=== PATIENT | male | born 1985 | race Caucasian/White ===

== ENCOUNTER 2017-01-25 21:06 | Emergency (ER) | payer OTHER ==
[~2017-01-25] VITALS: Ht 180.3 cm; Wt 90.7 kg
[2017-01-25 21:15] VITALS: BP 144/91
--- NOTE | 2017-01-25 21:45 | ED GI/GU/ABDOMINAL COMPLAINT ---
History of Present Illness General Chief Complaint: Male Genitourinary Problems Stated Complaint: WANTS TO BE CHECKED FOR STD Source: patient Exam Limitations: no limitations Vital Signs & Intake/Output Vital Signs & Intake/Output Vital Signs Date Time Temp Pulse Resp B/P B/P Pulse O2 O2 Flow FiO2 Mean Ox Delivery Rate 01/25 2115 97.9 95 15 144/91 100 Room Air ED Intake and Output 01/26 0000 01/25 1200 Intake Total Output Total 30 Balance -30 Output, Urine 30 Patient 200 lb Weight Weight Reported by Patient Measurement Method Allergies Coded Allergies: aspirin (Severe, CHOKING 01/25/17) Triage Note: PT REQUESTING TO BE CHECKED FOR STD, STATING HE IS CURRENTLY ASYMPTOMATIC "BUT MY GIRLFRIEND HAS BEEN ITCHING" DENIES ANY NEW SEXUAL CONTACTS Triage Nurses Notes Reviewed? yes HPI: Patient is a 31-year-old male presents requesting STD testing. Patient reports that his girlfriend has been having vaginal itching and had a small amount of bloody discharge this weekend. Patient concerned that she may have sexually- transmitted disease. Patient reports his pain is 0 out of 10. No penile discharge, dysuria, testicular pain, abdominal pain, fevers, chills, nausea, vomiting. 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 none Neurological: NONE EENT: NONE Cardiovascular: NONE Respiratory: NONE Gastrointestinal: NONE Hepatic: NONE Renal: NONE Musculoskeletal: NONE Psychiatric: NONE Endocrine: NONE Blood Disorders: NONE Cancer(s): NONE Surgical History Surgical History: non-contributory Psychosocial History What is your primary language Upper Sorbian Tobacco Use: Current Daily Use Daily Tobacco Use Amount/Type: => 5 Cigarettes daily ETOH Use: denies use Illicit Drug Use: denies illicit drug use Family History Hx Contributory? No (BRIGITTE DRAPER) Review of Systems Review of Systems Constitutional: Denies: chills, fever. GI: Denies: abdominal pain, nausea, vomiting. Genitourinary: Reports: see HPI. Denies: discharge, dysuria, frequency, pain. Musculoskeletal: Denies: back pain. Skin: Reports: no symptoms. Neurological/Psychological: Reports: no symptoms. Hematologic/Endocrine: Reports: no symptoms. Immunologic/Allergic: Reports: no symptoms. (BRIGITTE DRAPER) Physical Exam Physical Exam General Appearance: well developed/nourished, alert, awake Head: atraumatic, normal appearance Eyes: Bilateral: normal appearance. Ears, Nose, Throat, Mouth: hearing grossly normal, moist mucous membrane Neck: normal inspection, full range of motion Respiratory: no respiratory distress Gastrointestinal: nondistended Back: normal range of motion Extremities: normal range of motion Neurologic/Psych: no motor/sensory deficits, awake, alert, oriented x 3, normal gait, normal mood/affect Skin: intact, normal color, warm/dry Core Measures ACS in differential dx? No Severe Sepsis Present: No Septic Shock Present: No (BRIGITTE DRAPER) Progress Differential Diagnosis: urethritis, UTI/pyelo, exposure to STD, well check Plan of Care: Orders Procedure Date/time Status CHLAMYDIA-GC DNA PROBE 01/25 2149 Active Microbiology 01/25 2200 URINE ROUT: GC DNA Probe - RECD 01/25 2200 URINE ROUT: Chlamydia DNA Probe (DESHAUN) - RECD Patient asymptomatic. Discussed that I would obtain gonorrhea and chlamydia testing, and that further testing should be obtained through his primary doctor. Empiric therapy deferred. (BRIGITTE DRAPER) Initial ED EKG: none (BRIGITTE DRAPER) Departure Departure Time of Disposition: 2149 Disposition: HOME OR SELF CARE Condition: Stable Clinical Impression Primary Impression: Screen for sexually transmitted diseases Referrals: NILE BENJAMIN,LIDYA Velez (PCP/Family) Additional Instructions: You will be called if your testing comes back positive for gonorrhea or chlamydia. It usually takes 2-3 days to receive the results. Follow up with your primary doctor for further evaluation. Return to the ER if penile pain, testicular pain, abdominal pain, fevers, or any worsening of symptoms. Departure Forms: Customer Survey General Discharge Information (BRIGITTE DRAPER) Departure Prescriptions: Current Visit Scripts No Known Home Medications PA/HEADLIGHT ADJUSTER Co-Sign Statement Statement: ED Attending supervision documentation- [] I saw and evaluated the patient. I have also reviewed all the pertinent lab results and diagnostic results. I agree with the findings and the plan of care as documented in the PA's/HEADLIGHT ADJUSTER's documentation. [x] I have reviewed the ED Record and agree with the PA's/HEADLIGHT ADJUSTER's documentation. [] Additions or exceptions (if any) to the PAs/HEADLIGHT ADJUSTER's note and plan are summarized below: [] (KHLOE BENJAMIN,LOWELL Rolon)
== END 2017-01-25 22:03 ==
LOC: ERH 21:06
DX: Z20.2 Contact with and (suspected) exposure to infections with a predominantly sexual mode of transmission (principal)
CPT/HCPCS: 87491; 87591

== ENCOUNTER 2017-12-17 15:43 | Observation (INO) | payer OTHER ==
[~2017-12-17] VITALS: Ht 180.3 cm; Wt 90.7 kg
[2017-12-17 17:55] LABS: ABSOLUTE BASOPHIL COUNT 0.1 /CUMM (0.0-0.2); ABSOLUTE EOSINOPHIL COUNT 0.1 /CUMM (0.0-0.7); ABSOLUTE GRANULOCYTE CT 7.4 /CUMM (1.4-6.5); ABSOLUTE LYMPH COUNT 3.2 /CUMM (1.2-3.4); ABSOLUTE MONOCYTE COUNT 0.7 /CUMM (0.10-0.60); BASOPHIL % 1.3 % (0.0-2.0); EOSINOPHIL % 0.8 % (0-5); GRANULOCYTE % 64.4 % (42.2-75.2); HEMATOCRIT 47.2 % (42-52); MEAN CORPUSCULAR HGB 27.9 PG (27.0-31.0); MEAN CORPUSCULAR HGB CONC 32.6 G/DL (33.0-37.0); MEAN CORPUSCULAR VOLUME 85.6 FL (80.0-94.0); MEAN PLATELET VOLUME 9.8 FL (7.4-10.4); PLATELET COUNT 174 /CUMM (130-400); RBC DISTRIBUTION WIDTH 12.8 % (11.5-14.5); RED BLOOD CELL CT 5.51 /CUMM (4.70-6.10); WHITE BLOOD CELL COUNT 11.5 /CUMM (4.8-10.8)
--- NOTE | 2017-12-17 18:04 | ED GI/GU/ABDOMINAL COMPLAINT ---
See Addendum History of Present Illness General Chief Complaint: Abdominal Pain/Flank Pain Stated Complaint: ABD PAIN SINCE THIS MORNING PER PT Source: patient Exam Limitations: no limitations Vital Signs & Intake/Output Vital Signs & Intake/Output Vital Signs Date Time Temp Pulse Resp B/P B/P Pulse O2 O2 Flow FiO2 Mean Ox Delivery Rate 12/17 1621 97.7 98 18 121/83 97 Room Air Allergies Coded Allergies: aspirin (Severe, CHOKING 01/25/17) Reconcile Medications No Known Home Medications Triage Note: PT PRESENTS TO THE ER C/O ABD PAIN 03/30. PT STATES THAT HE HAD AN INTACONCEPTION (PER PT WHEN HIS SMALL INTESTINES BINDS WITH THE LARGE). PT STATES THAT THE PAIN FEELS THE SAME. PER PT PAIN STARTED 10AM THIS AM AND PROGRESSIVELY WORSE. PT LAST BM YESTERDAY. Triage Nurses Notes Reviewed? yes Onset: Abrupt Duration: day(s): Timing: recent history Quality/Severity: moderate, sharpness, severe Location: periumbilical Radiation: no radiation Activities at Onset: none No Modifying Factors: none HPI: 32-year-old male comes into the emergency room for further evaluation of abdominal pain. Patient reports that 2 years ago he had intussusception and had surgery. Denies any other prior abdominal surgeries. Reports pain is located across his mid abdomen and shoots down his right side. There is any fever chills vomiting. Some associated nausea earlier. He had a bowel movement this morning but has not been passing any gas since then. Sudden onset pain. (Herrera Warren) Past History Travel History Traveled to [place] past 21 day No Medical History Any Pertinent Medical History? see below for history Neurological: NONE EENT: NONE Cardiovascular: NONE Respiratory: NONE Gastrointestinal: INTRACEPTION Hepatic: NONE Renal: NONE Musculoskeletal: NONE Psychiatric: NONE Endocrine: NONE Blood Disorders: NONE Cancer(s): NONE Surgical History Surgical History: non-contributory Psychosocial History What is your primary language Wolof Tobacco Use: Current Not Daily Daily Tobacco Use Amount/Type: =< 4 Cigarettes daily Family History Hx Contributory? No (Herrera Warren) Review of Systems Review of Systems Constitutional: Reports: no symptoms. EENTM: Reports: no symptoms. Respiratory: Reports: no symptoms. Cardiovascular: Reports: no symptoms. GI: Reports: see HPI. Genitourinary: Reports: no symptoms. Musculoskeletal: Reports: no symptoms. Skin: Reports: no symptoms. Neurological/Psychological: Reports: no symptoms. Hematologic/Endocrine: Reports: no symptoms. Immunologic/Allergic: Reports: no symptoms. All Other Systems: Reviewed and Negative (Herrera Warren) Physical Exam Physical Exam General Appearance: well developed/nourished, alert, awake Head: atraumatic, normal appearance Eyes: Bilateral: normal appearance, EOMI. Ears, Nose, Throat, Mouth: hearing grossly normal, moist mucous membrane Neck: normal inspection, full range of motion Respiratory: normal breath sounds, no respiratory distress Cardiovascular: regular rate/rhythm Gastrointestinal: soft, tenderness Back: normal inspection Extremities: normal range of motion Neurologic/Psych: awake, alert, oriented x 3, normal gait Skin: intact, normal color Core Measures ACS in differential dx? No Sepsis Present: No Sepsis Focused Exam Completed? No (Herrera Warren) Progress Differential Diagnosis: AMI, appendicitis, biliary colic, cholecystitis, diverticulitis, gastritis, ischemic bowel, PUD/GERD, perforated viscous, SBO, ureterolithiasis, intussusception Plan of Care: Orders Procedure Date/time Status Nothing by Mouth 12/[address] in observation 12/18 2007 Active ED Holding Orders 12/18 2007 Active Vital Signs 12/18 2007 Active Code Status 12/18 2007 Active Add-on Test (ER Only) 12/17 1803 Active LACTIC ACID 12/17 1740 Complete LIPASE 12/17 1727 Complete HIGH SENSITIVITY CRP 12/17 1727 Complete COMPREHENSIVE METABOLIC PANEL 12/17 1727 Complete CBC WITHOUT DIFFERENTIAL 12/17 1727 Complete Current Medications Sig/Kathy Start time Last Medication Dose Stop Time Status Admin Morphine Sulfate 4 MG ONCE ONE 12/17 2014 UNVr (Morphine) 12/18 2015 Laboratory Tests 12/17/17 1740: Anion Gap 13, Estimated GFR > 60, BUN/Creatinine Ratio 20.0, Glucose 77, Lactic Acid 1.0, Calcium 9.7, Total Bilirubin 1.2, AST 42, ALT 71, Alkaline Phosphatase 75, C-React Prot High Sens 0.6 L, Total Protein 8.3 H, Albumin 4.9, Globulin 3.4, Albumin/Globulin Ratio 1.4, Lipase 89, CBC w Diff NO MAN DIFF REQ, RBC 5.51 , MCV 85.6, MCH 27.9, MCHC 32.6 L, RDW 12.8, MPV 9.8, Gran % 64.4, Lymphocytes % 27.8, Monocytes % 5.7, Eosinophils % 0.8, Basophils % 1.3, Absolute Granulocytes 7.4 H, Absolute Lymphocytes 3.2, Absolute Monocytes 0.7 H, Absolute Eosinophils 0.1, Absolute Basophils 0.1 Diagnostic Imaging: Viewed by Me: CT Scan. Discussed w/RAD: CT Scan. Initial ED EKG: none (Cong GLEASON,Herrera) Departure Departure Disposition: HOME OR SELF CARE Condition: Stable Clinical Impression Primary Impression: Abdominal pain Referrals: Alejandro Adler DO, MD,Fredrick Velez (PCP/Family) Additional Instructions: Follow-up with general surgeon provided. Return if any concerns worsening symptoms. Please go over all results of today's visit with your primary care doctor. Contact your primary care doctor to let them know you were here in the emergency room. There may be nonspecific findings which may not be related to your visit today here in the emergency room but may require further evaluation and chronic monitoring by your primary care doctor. If you had a laceration today the chance of foreign body always remains. You should follow-up with your primary care doctor for recheck in 3-5 days for a wound check. If you had an x-ray done there is a chance that a fracture could have been missed on initial read and you should follow-up with your primary care doctor for repeat x-rays if symptoms persist. If your blood pressure was elevated here in the emergency room please have rechecked by [facility] primary care doctor within the next 48. If you were prescribed a narcotic here in the emergency room or any type of controlled substances you're not allowed to drive while taking this medication or operate any type of heavy machinery. Narcotics can make you feel lightheaded dizziness nausea and can cause constipation. You may need to picker and packer a stool softener. Thank you for choosing [facility] emergency room. Please return to the emergency room immediately if you have any other concerns worsening of symptoms. Departure Forms: Customer Survey General Discharge Information Prescriptions: Current Visit Scripts No Known Home Medications Observation Note Spoke With: Alejandro Adler DO Physician Advisor Notified: CORRY BENJAMIN,EVA Montoya Place Patient In: Non-ED OBS Care Area Rationale for Observation: My rational for observation is as follows .NPO. Possibly repeat imaging in the morning. Surgical consultation. Repeat labs. IV pain control. (Herrera Warren) PA/SUPERVISOR BLOOD Co-Sign Statement Statement: ED Attending supervision documentation- [X] I saw and evaluated the patient. I have also reviewed all the pertinent lab results and diagnostic results. I agree with the findings and the plan of care as documented in the PA's/SUPERVISOR BLOOD's documentation. [X] I have reviewed the ED Record and agree with the PA's/SUPERVISOR BLOOD's documentation. [] Additions or exceptions (if any) to the PAs/SUPERVISOR BLOOD's note and plan are summarized below: [Patient to be placed in a surgical observation for abdominal pain. Patient will require serial abdominal exams. Unknown yet at this time the patient will require surgical intervention or not.] (Corry BENJAMIN,Eva Montoya)
--- NOTE | 2017-12-17 19:31 | CT SCAN REPORT ---
EXAMINATION: CT ABDOMEN AND PELVIS WITH CONTRAST CLINICAL INFORMATION: 32-year-old male patient with periumbilical pain. History of intussusception. Presumptive diagnoses: Small bowel obstruction, intussusception, hernia. COMPARISON: None TECHNIQUE: Multidetector volumetric imaging was performed of the abdomen and pelvis following IV administration of 95 mL of Optiray 320 intravenous contrast. Sagittal and coronal reformatted images were obtained on the technologist's workstation. DLP: 351 mGy-cm FINDINGS: CHIEF SCIENCE OFFICER: Normal. No evidence of small bowel obstruction. LUNG BASES: The visualized lung bases are unremarkable. LIVER, GALLBLADDER, AND BILIARY TREE: Normal. PANCREAS: Unremarkable. SPLEEN: Unremarkable. ADRENAL GLANDS: Unremarkable. KIDNEYS AND URETERS: The kidneys are normal in size, shape, and attenuation. No hydronephrosis, hydroureter, or calculi seen. No perinephric stranding. BLADDER: Unremarkable. GASTROINTESTINAL TRACT: The colon and appendix are normal. Of interest is the observation of a cluster of proximal jejunum with thickened murrieta. The orientation of these loops is unusual and therefore the likelihood of a small bowel to small bowel intussusception is very high. The rest of the small intestine is normal. ABDOMINAL WALL: No significant hernia is appreciated. LYMPH NODES: Normal. VASCULAR: Unremarkable. PELVIC VISCERA: Unremarkable. OSSEOUS STRUCTURES: Unremarkable. IMPRESSION: The edematous cluster of proximal jejunal loops is a likely location for producing a small bowel to small bowel intussusception. Currently, no intussusception is documented. However these types of intussusceptions are most often evanescent.
--- NOTE | 2017-12-17 20:25 | History & Physical Pre-Op ---
General Information and HPI MD Statement: I have seen and personally examined BRIGITTE DA SILVA and documented this H&P. The patient is a 32 year old M who presented with a patient stated chief complaint of [ABDOMINAL PAIN]. Source of Information: patient History of Present Illness: 32-year-old male that presented to the emergency room with abdominal pain started today. Patient with a history of intussusception approximately year and a half ago for which required a laparotomy and as per patient a small bowel resection. Patient states that this pain was similar to the one he had in the past. Currently patient states he feels better however still has some vague abdominal pain. Currently denies nausea or vomiting. Allergies/Medications Allergies: Coded Allergies: aspirin (Severe, CHOKING 01/25/17) Home Med list No Known Home Medications Past History Medical History Neurological: NONE EENT: NONE Cardiovascular: NONE Respiratory: NONE Gastrointestinal: INTRACEPTION Hepatic: NONE Renal: NONE Musculoskeletal: NONE Psychiatric: NONE Endocrine: NONE Blood Disorders: NONE Cancer(s): NONE Surgical History Pertinent Surgical History: non-contributory (laparotomy/small bowel resecti) Past Family/Social History Psychosocial History ETOH Use: occasional use Illicit Drug Use: denies illicit drug use Review of Systems Review of Systems: All negative except for the above-mentioned pertinent positives. Exam & Diagnostic Data Last 24 Hrs of Vital Signs/I&O Vital Signs Date Time Temp Pulse Resp B/P B/P Pulse O2 O2 Flow FiO2 Mean Ox Delivery Rate 12/17 1621 97.7 98 18 121/83 97 Room Air Physical Exam General Appearance Alert, Oriented X3, No Acute Distress Neck Supple Cardiovascular Normal S1, Normal S2 Lungs Clear to Auscultation Abdomen Soft (mild epigastric discomfort), no rebound or guarding, mild epigastric pain Neurological Normal Speech, Cranial Nerves 3-12 NL Extremities No Edema, No Tenderness/Swelling Last 24 Hrs of Labs/Robi: Laboratory Tests 12/17/17 1740: Anion Gap 13, Estimated GFR > 60, BUN/Creatinine Ratio 20.0, Glucose 77, Lactic Acid 1.0, Calcium 9.7, Total Bilirubin 1.2, AST 42, ALT 71, Alkaline Phosphatase 75, C-React Prot High Sens 0.6 L, Total Protein 8.3 H, Albumin 4.9, Globulin 3.4, Albumin/Globulin Ratio 1.4, Lipase 89, CBC w Diff NO MAN DIFF REQ, RBC 5.51 , MCV 85.6, MCH 27.9, MCHC 32.6 L, RDW 12.8, MPV 9.8, Gran % 64.4, Lymphocytes % 27.8, Monocytes % 5.7, Eosinophils % 0.8, Basophils % 1.3, Absolute Granulocytes 7.4 H, Absolute Lymphocytes 3.2, Absolute Monocytes 0.7 H, Absolute Eosinophils 0.1, Absolute Basophils 0.1 Diagnostic Data Other Results CT scan of the abdomen and pelvis - thickened jejunal loops, no current intussusception. Assessment/Plan Assessment/Plan: 32-year-old male with abdominal pain and history of intussusception. Now with thickened loops of jejunum without an obvious intussusception at this time. We'll admit for observation overnight due to persistent discomfort Nothing by mouth IV fluids for now Multiview in the morning Serial abdominal exams May require a GI evaluation in the morning As Ranked By This Provider Problem List: 1. Abdominal pain
--- NOTE | 2017-12-17 21:06 | Admission Core Measures ---
Acute Coronary Syndrome (CM) ACS Core Measures Acute Coronary Syndrome Diagnosis No Congestive Heart Failure (NEW) CHF Core Measures Congestive Heart Failure Diagnosis No Cerebrovascular Accident (NEW) CVA Core Measures CVA/TIA Diagnosis No Venous Thromboembolism VTE Core Bala (View Protocol) VTE Risk Factors Acute Medical Illness No Mechanical VTE Prophylaxis d/t N/A MechProphylax Ordered No VTE Pharm Prophylaxis d/t NA PharmProphylax ordered Problem List As ranked by this Provider includes Assessment & Plan 1. Abdominal pain HOME MEDS Home Med List No Known Home Medications
[2017-12-17 22:13] VITALS: BP 112/76
[2017-12-18 06:00] VITALS: BP 100/74
[2017-12-18 08:09] LABS: ABSOLUTE BASOPHIL COUNT 0 /CUMM (0.0-0.2); ABSOLUTE EOSINOPHIL COUNT 0.3 /CUMM (0.0-0.7); ABSOLUTE GRANULOCYTE CT 3.7 /CUMM (1.4-6.5); ABSOLUTE LYMPH COUNT 3.2 /CUMM (1.2-3.4); ABSOLUTE MONOCYTE COUNT 0.6 /CUMM (0.10-0.60); BASOPHIL % 0.1 % (0.0-2.0); EOSINOPHIL % 3.8 % (0-5); HEMATOCRIT 42.4 % (42-52); MEAN CORPUSCULAR HGB 28.7 PG (27.0-31.0); MEAN CORPUSCULAR HGB CONC 33.8 G/DL (33.0-37.0); MEAN PLATELET VOLUME 10.1 FL (7.4-10.4); PLATELET COUNT 149 /CUMM (130-400); RBC DISTRIBUTION WIDTH 13.2 % (11.5-14.5); RED BLOOD CELL CT 4.99 /CUMM (4.70-6.10); WHITE BLOOD CELL COUNT 7.9 /CUMM (4.8-10.8)
--- NOTE | 2017-12-18 08:56 | PN- General Surgery ---
Subjective Subjective: Reports pain significantly improved since he presented to the ED. His pain has migrated somewhat to the right lower quadrant. Denies nausea. Eager to eat. Passing some flatus yesterday and last bm yesterday morning. He states he wants to go home today. Objective Vital Signs and I&Os Vital Signs Date Time Temp Pulse Resp B/P B/P Pulse O2 O2 Flow FiO2 Mean Ox Delivery Rate 12/18 599 98.0 58 16 100/74 94 Room Air 12/17 2213 97.9 60 18 112/76 97 Room Air 12/17 2028 97.4 72 18 133/84 97 12/17 1621 97.7 98 18 121/83 97 Room Air Intake & Output 12/18 1600 12/18 0800 12/18 0000 12/17 1600 12/17 0812/17 0000 Intake Total 1000 0 Output Total Balance 1000 0 Intake, IV 1000 Intake, Oral 0 0 Patient 200 lb Weight Weight Reported by Patient Measurement Method Physical Exam: General - alert & oriented x 3. comfortable. no acute distress. Lungs - clear bilaterally. no w/r/r. Cardiac - s1s2. reg. Abdomen - soft. bowel sounds appreciated. mild right lower quadrant tenderness. no peritoneal signs. Extremities - warm bilaterally. no c/c/e. calves soft and nontender b/l. Current Medications: Current Medications Sig/Kathy Start time Last Medication Dose Route Stop Time Status Admin Acetaminophen 650 MG Q6PRN PRN 12/17 2100 AC PO Dextrose/Sodium 1,000 ML .Q8H 12/17 2100 AC 12/18 Chloride IV 0531 Heparin Sodium 5,000 UNIT Q8 12/18 0600 AC 12/18 (Porcine) SC 0531 Influenza Virus 0.5 ML ONCE ONE 12/18 1000 AC Vaccine IM 12/18 1001 Morphine Sulfate 2 MG Q3P PRN 12/17 2100 AC IV Morphine Sulfate 4 MG Q3P PRN 12/17 2100 AC 12/18 IV 0531 Morphine Sulfate 0 .STK-MED ONE 12/17 2037 DC .ROUTE Morphine Sulfate 4 MG ONCE ONE 12/17 2014 DC 12/17 IV 12/17 Morphine Sulfate 0 .STK-MED ONE 12/17 1904 DC .ROUTE Morphine Sulfate 4 MG ONCE ONE 12/17 183 DC 12/17 IV 12/17 1830 191 Ondansetron HCl 4 MG Q8P PRN 12/17 2100 AC IV Results Last 48 Hours of Labs: Laboratory Tests 12/18 12/17 0723 1740 Chemistry Sodium (137 - 145 mmol/L) 143 142 Potassium (3.5 - 5.1 mmol/L) 4.0 4.1 Chloride (98 - 107 mmol/L) 106 104 Carbon Dioxide (22 - 30 mmol/L) 24 26 Anion Gap (5 - 16) 13 13 BUN (9 - 20 mg/dL) 14 14 Creatinine (0.7 - 1.2 mg/dL) 0.7 0.7 Estimated GFR (>60 ml/min) > 60 > 60 BUN/Creatinine Ratio (7 - 25 %) 20.0 20.0 Glucose (65 - 99 mg/dL) 77 Lactic Acid (0.7 - 2.1 mmol/L) 1.0 Calcium (8.4 - 10.2 mg/dL) 9.7 Total Bilirubin (0.2 - 1.3 mg/dL) 1.2 AST (17 - 59 U/L) 42 ALT (21 - 72 U/L) 71 Alkaline Phosphatase (< 127 U/L) 75 C-React Prot High Sens (1.0 - 3.0 mg/L) 0.6 L Total Protein (6.3 - 8.2 g/dL) 8.3 H Albumin (3.5 - 5.0 g/dL) 4.9 Globulin (1.9 - 4.2 gm/dL) 3.4 Albumin/Globulin Ratio (1.1 - 2.2 %) 1.4 Lipase (23 - 300 U/L) 89 Hematology CBC w Diff NO MAN DIFF REQ NO MAN DIFF REQ WBC (4.8 - 10.8 /CUMM) 7.9 11.5 H RBC (4.70 - 6.10 /CUMM) 4.99 5.51 Hgb (14.0 - 18.0 G/DL) 14.3 15.4 Hct (42 - 52 %) 42.4 47.2 MCV (80.0 - 94.0 FL) 85.0 85.6 MCH (27.0 - 31.0 PG) 28.7 27.9 MCHC (33.0 - 37.0 G/DL) 33.8 32.6 L RDW (11.5 - 14.5 %) 13.2 12.8 Plt Count (130 - 400 /CUMM) 149 174 MPV (7.4 - 10.4 FL) 10.1 9.8 Gran % (42.2 - 75.2 %) 47.0 64.4 Lymphocytes % (20.5 - 51.1 %) 41.1 27.8 Monocytes % (1.7 - 9.3 %) 8.0 5.7 Eosinophils % (0 - 5 %) 3.8 0.8 Basophils % (0.0 - 2.0 %) 0.1 1.3 Absolute Granulocytes (1.4 - 6.5 /CUMM) 3.7 7.4 H Absolute Lymphocytes (1.2 - 3.4 /CUMM) 3.2 3.2 Absolute Monocytes (0.10 - 0.60 /CUMM) 0.6 0.7 H Absolute Eosinophils (0.0 - 0.7 /CUMM) 0.3 0.1 Absolute Basophils (0.0 - 0.2 /CUMM) 0 0.1 Assessment/Plan Assessment/Plan This 32 year old male with hx intussusception requiring surgery several years ago who presented yesterday with abdominal pain with imaging suggesting possible resolved re-intussusception, currently feeling significantly better and eager to eat food currently npo / ivf f/u xray this morning trial food after xray done / read oob/ambulation hep sc - dvt ppx observation status given likelihood of discharge today if xray stable and tolerating food will d/w Core Measures Venous Thromboembolism VTE Risk Factors Acute Medical Illness No Mechanical VTE Prophylaxis d/t N/A MechProphylax Ordered No VTE Pharm Prophylaxis d/t NA PharmProphylax ordered
--- NOTE | 2017-12-18 10:25 | Patient Discharge Instructions ---
Discharge Instructions General Discharge Information You were seen/treated for: abdominal pain, possible resolved intussusception You had these procedures: bowel rest, iv fluids, repeat imaging Watch for these problems: fever>101.3, increased pain, recurrent abdominal pain, nausea/vomiting Diet Continue normal diet: Yes Recommended Diet: Regular Activity Full Activity/No Limits: Yes Activity Self Limited: Yes Acute Coronary Syndrome Inclusion Criteria At DC or during hospital stay patient has or had the following: ACS DIAGNOSIS No Discharge Core Measures Meds if any: Prescribed or Continued at Discharge Meds if any: NOT Prescribed or Continued at Discharge Congestive Heart Failure Inclusion Criteria At DC or during hospital stay patient has or had the following: CHF DIAGNOSIS No Discharge Core Measures Meds if any: Prescribed or Continued at Discharge Meds if any: NOT Prescribed or Continued at Discharge Cerebrovascular accident Inclusion Criteria At DC or during hospital stay patient has or had the following: CVA/TIA Diagnosis No Discharge Core Measures Meds if any: Prescribed or Continued at Discharge Meds if any: NOT Prescribed or Continued at Discharge Venous thromboembolism Inclusion Criteria VTE Diagnosis No VTE Type NONE VTE Confirmed by (Test) NONE Discharge Core Measures - Per Current guidelines, there needs to be overlap - treatment for the first 5 days of Warfarin therapy. - If discharged on Warfarin prior to 5 days of - overlap therapy, the patient will need to be - assessed for post discharge needs including - *Post discharge parental anticoagulation - *Warfarin and/or parental anticoagulation education - *Follow up date to check INR post discharge At least 5 days overlap therapy as Inpatient No Meds if any: Prescribed or Continued at Discharge Note: Overlap Therapy is Warfarin and Anticoagulant Meds if any: NOT Prescribed or Continued at Discharge
--- NOTE | 2017-12-18 10:32 | Surg Short-stay <48hrs Dis Sum ---
Visit Information Visit Dates Admission Date: 12/17/17 Discharge Date: 12/18/17 Surgical Short Stay DC Summary Admission Diagnosis: abdominal pain, suspected resolved intussusception Final Diagnosis: same as above, conservatively treated with bowel rest and observation Procedure(s): none Summary/Significant Findings: Presented to the ED 12/17/17 with acute abdominal pain and CT scan imaging done without oral contrast that showed possible resolved intussusception. He was kept npo with iv fluids, and re-imaged the next morning with repeat labs. Tolerating diet advancement prior to discharge to home. Condition at Discharge: stable Discharge Disposition: home or self care Discharge instructions provided to patient/family: Yes Post discharge follow-up plan: follow up with collector Copies to: Lars BENJAMIN,Fredrick Velez
--- NOTE | 2017-12-18 12:36 | RADIOLOGY REPORT ---
EXAMINATION: XR ABDOMEN MULTIPLE VIEWS CLINICAL INDICATION: Abdominal pain. Presumptive diagnosis of intussusception. COMPARISON: The scan of the abdomen and pelvis dated 12/17/2017. TECHNIQUE: 2 views of the abdomen. FINDINGS: As noted on the CT scan, there is mild gas outlining the ascending, transverse and descending colon with relative paucity of bowel gas in the small bowel loops. No suspicious air-fluid levels are noted on the upright view. No free air is seen. The bladder is well distended and outlined by the contrast from recent CT scan and appears unremarkable. Bony structures are normal. Lung bases are clear. IMPRESSION: Normal bowel gas pattern with no plain film evidence of bowel obstruction or perforation.
[2017-12-18 14:46] VITALS: BP 118/82
== END 2017-12-18 16:10 ==
LOC: ERH 15:43 → ERHI 20:08 → 2NA 20:08 → ENRESERV 21:09 → 2NA 21:54 → ENTRNSPT 12-18 16:11 → EDTRNSPTSTS 12-18 16:18 → EDTRNSPT 12-18 16:18 → CMPTRNSPT 12-18 16:25
PROVIDERS: Physician Assistant; Physician Assistant Surgical
DX: R10.9 Unspecified abdominal pain (principal)
CPT/HCPCS: 6030; 36592; 74021; 74177; 82436; 96372; 96374; G0378; J1644; J7042; Q2036

== ENCOUNTER 2018-05-26 08:13 | Emergency (ER) | payer OTHER ==
[2018-05-26 09:07] LABS: ABSOLUTE BASOPHIL COUNT 0 /CUMM (0.0-0.2); ABSOLUTE EOSINOPHIL COUNT 0.2 /CUMM (0.0-0.7); ABSOLUTE GRANULOCYTE CT 5.5 /CUMM (1.4-6.5); ABSOLUTE LYMPH COUNT 2.8 /CUMM (1.2-3.4); ABSOLUTE MONOCYTE COUNT 0.6 /CUMM (0.10-0.60); BASOPHIL % 0.4 % (0.0-2.0); EOSINOPHIL % 2.1 % (0-5); GRANULOCYTE % 60.3 % (42.2-75.2); HEMATOCRIT 44.7 % (42-52); MEAN CORPUSCULAR HGB 28.7 PG (27.0-31.0); MEAN CORPUSCULAR HGB CONC 34.3 G/DL (33.0-37.0); MEAN CORPUSCULAR VOLUME 83.7 FL (80.0-94.0); MEAN PLATELET VOLUME 10.4 FL (7.4-10.4); PLATELET COUNT 167 /CUMM (130-400); RBC DISTRIBUTION WIDTH 13.2 % (11.5-14.5); RED BLOOD CELL CT 5.35 /CUMM (4.70-6.10); WHITE BLOOD CELL COUNT 9.2 /CUMM (4.8-10.8)
--- NOTE | 2018-05-26 09:20 | ED GI/GU/ABDOMINAL COMPLAINT ---
History of Present Illness General Chief Complaint: Abdominal Pain/Flank Pain Stated Complaint: ABD PAIN Source: patient Exam Limitations: no limitations Vital Signs & Intake/Output Vital Signs & Intake/Output Vital Signs Date Time Temp Pulse Resp B/P B/P Pulse O2 O2 Flow FiO2 Mean Ox Delivery Rate 05/26 1133 98.0 89 18 113/73 97 Room Air 05/26 0919 98 Room Air Allergies Coded Allergies: aspirin (Severe, CHOKING 01/25/17) Reconcile Medications Dicyclomine HCl 10 MG CAPSULE 1-2 CAP PO TID abd pain Tramadol HCl 50 MG TABLET 1-2 TAB PO Q6P PRN pain Triage Note: PT TO ED C/O MIDDLE ABD PAIN. STATES THAT HE HAS A HX OF INTUSSUSCPETION, AND FEELS SIMILAR. +NAUSEA. HAVING NORMAL BM. PAIN 8/10 CURRENTLY, PAIN STARTED X2 DAYS AGO. Triage Nurses Notes Reviewed? yes Duration: day(s): Timing: recent history Radiation: no radiation Activities at Onset: none HPI: Pt is a 32 y/o M PMHx intussesception presenting with abdominal pain x 2 days. Pt states pain is located a the mid-abdomen and radiating to his back. Pt does not recall what he was doing at onset of pain. Pt denies exerting himself in the past several days. Pt states he had surgery to correct intussusception 3 years ago. Pt denies any complications from the surgery. Pt admits to occasional ETOH and smoking. Pt denies any change in diet, N/V/D/C, dysuria, polyuria, hematuria , cp, cough, SOB. (Herrera Warren) Past History Travel History Traveled to [place] past 21 day No Medical History Any Pertinent Medical History? see below for history Neurological: NONE EENT: NONE Cardiovascular: NONE Respiratory: NONE Gastrointestinal: INTUSSICEPTION Hepatic: NONE Renal: NONE Musculoskeletal: NONE Psychiatric: NONE Endocrine: NONE Blood Disorders: NONE Cancer(s): NONE History of MRSA: No History of VRE: No History of CDIFF: No Influenza Vaccine: 12/18/17 Surgical History Surgical History: non-contributory (laparotomy/small bowel resecti) Psychosocial History What is your primary language Gabonese Tobacco Use: Never used Family History Hx Contributory? No (Herrera Warren) Review of Systems Review of Systems Constitutional: Denies: see HPI. EENTM: Reports: no symptoms. Respiratory: Denies: see HPI. Cardiovascular: Denies: see HPI. GI: Reports: see HPI. Genitourinary: Denies: see HPI. Musculoskeletal: Reports: no symptoms. Skin: Reports: no symptoms. Neurological/Psychological: Reports: no symptoms. Hematologic/Endocrine: Reports: no symptoms. Immunologic/Allergic: Reports: no symptoms. All Other Systems: Reviewed and Negative (Herrera Warren) Physical Exam Physical Exam General Appearance: well developed/nourished, alert, awake Head: atraumatic, normal appearance Eyes: Bilateral: normal appearance. Ears, Nose, Throat, Mouth: hearing grossly normal, moist mucous membrane Neck: normal inspection, supple Respiratory: normal breath sounds, no respiratory distress, lungs clear Cardiovascular: regular rate/rhythm, NMRG Peripheral Pulses: 2+ radial (R), 2+ radial (L) Gastrointestinal: normal bowel sounds, soft, no organomegaly, Surgical scar noted above umbilicus.Tender to palpation of RUQ. Possible defect in abdominal wall palpated, no active henria Skin: intact, normal color, warm/dry Core Measures ACS in differential dx? No Sepsis Present: No Sepsis Focused Exam Completed? No (Herrera Warren) Progress Differential Diagnosis: biliary colic, bowel obstruction, cholecystitis, hernia, pancreatitis, SBO Plan of Care: Laboratory Tests 05/26/18 1123: Lactic Acid Cancelled 05/26/18 1034: Urine Color YEL, Urine Clarity CLEAR, Urine pH 6.5, Ur Specific Perry 1.010, Urine Protein NEG, Urine Ketones NEG, Urine Nitrite NEG, Urine Bilirubin NEG, Urine Urobilinogen 0.2, Ur Leukocyte Esterase NEG, Ur Microscopic EXAM NOT REQUIRED, Urine Hemoglobin NEG, Urine Glucose NEG 05/26/18 0900: Anion Gap 6, Estimated GFR > 60, BUN/Creatinine Ratio 20.0, Glucose 103 H, Lactic Acid 0.8, Calcium 8.9, Total Bilirubin 0.9, AST 20, ALT 44, Alkaline Phosphatase 72, Total Protein 6.9, Albumin 4.1, Globulin 2.8, Albumin/Globulin Ratio 1.5, Lipase 139, CBC w Diff NO MAN DIFF REQ, RBC 5.35, MCV 83.7, MCH 28.7, MCHC 34.3, RDW 13.2, MPV 10.4, Gran % 60.3, Lymphocytes % 31.0, Monocytes % 6.2, Eosinophils % 2.1, Basophils % 0.4, Absolute Granulocytes 5.5, Absolute Lymphocytes 2.8, Absolute Monocytes 0.6, Absolute Eosinophils 0.2, Absolute Basophils 0 Diagnostic Imaging: Viewed by Me: CT Scan. Discussed w/RAD: CT Scan. Radiology Impression: PATIENT: BRIGITTE DA SILVA PRESENT AGE: 32 PATIENT ACCOUNT NO: [id number] : 85 LOCATION: [facility] ORDERING PHYSICIAN: Herrera GLEASON SERVICE DATE: 05/26/18 EXAM TYPE : CAT - CT ABD & PELVIS W IV CONTRAST EXAMINATION: CT ABDOMEN AND PELVIS WITH CONTRAST CLINICAL INFORMATION: Abdominal pain. Assess for small bowel obstruction or hernia. History of intussusception. COMPARISON: CT scan of the abdomen and pelvis 12/17/2017. Abdominal x-ray 12/18/2017. TECHNIQUE: Multidetector volumetric imaging was performed of the abdomen and pelvis following IV administration of 95 mL of Optiray 320 intravenous contrast. Sagittal and coronal reformatted images were obtained on the technologist's workstation. DLP: 354.51 mGy-cm FINDINGS: LUNG BASES: The visualized lung bases are unremarkable. LIVER, GALLBLADDER, AND BILIARY TREE: The liver is normal in size and shape. It has diffusely decreased attenuation consistent with hepatic steatosis. There are no focal abnormalities. The intrahepatic ducts are not dilated. The gallbladder is unremarkable with no evidence of radiopaque gallstones, gallbladder wall thickening, or obvious pericholecystic inflammatory changes. PANCREAS: Unremarkable. SPLEEN: Unremarkable. ADRENAL GLANDS: The adrenal glands are not enlarged. KIDNEYS AND URETERS: The kidneys are normal in size, shape, and attenuation. No hydronephrosis, hydroureter, or calculi seen. No perinephric stranding. BLADDER: The urinary bladder is partially distended. GASTROINTESTINAL TRACT: The stomach is unremarkable. As previously described, there are small bowel loops in the left abdomen which have a similar configuration compared to the prior study, although the loops are not as fluid- filled compared to the prior CT scan. More distally, the small bowel loops appear normal. The appendix is normal. There is moderate stool within the large bowel. ABDOMINAL WALL: There is a small fat-containing umbilical hernia, similar compared to the prior study. LYMPH NODES: There is no pelvic or abdominal lymphadenopathy. The retroperitoneum appears normal. VASCULAR: The vascular structures appear normal. No aneurysms are demonstrated. PELVIC VISCERA: The prostate gland is normal in size. There are no pelvic masses or free pelvic fluid. OSSEOUS STRUCTURES: There are no acute osseous findings. There are multilevel Schmorl's nodes. IMPRESSION: 1. The study redemonstrates loops of small bowel in the left upper abdomen, which have a similar configuration compared to the prior study. Less fluid is noted on the current exam. The remainder of the loops of small bowel are unremarkable. The appendix is normal. There is moderate stool within the large bowel. 2. No large hernias or abdominal masses are demonstrated. 3. Low-attenuation diffusely in the liver is consistent with hepatic steatosis. DICTATED BY: Goldy Mcknight MD DATE/TIME DICTATED:05/26/18946 SURVEYOR MINE:JASON DATE/TIME TRANSCRIBED:05/26/18946 CONFIDENTIAL, DO NOT COPY WITHOUT APPROPRIATE AUTHORIZATION. <Electronically signed in Other Vendor System> SIGNED BY: Goldy Mcknight MD 05/26/18 1003 Initial ED EKG: none Comments: 05/26/2018 12:50:03 PM I spoke with the radiologist. He says that there is no signs of small bowel infection or intussusception. Appears unchanged to previous CT scan. He is passing gas and not vomiting. He has no acute abdomen. He feels better upon discharge. He'll follow-up with primary care doctor. Return if any other concerns worsening symptoms. Understands and agrees WITH plan of care. he was also told to follow up with his surgeon. (Herrera Warren) Departure Departure Disposition: HOME OR SELF CARE Condition: Stable Clinical Impression Primary Impression: Abdominal pain Referrals: Lars BENJAMIN,Fredrick Velez (PCP/Family) Additional Instructions: Follow-up with your general surgeon. Return if any concerns worsening symptoms. Please go over all results of today's visit with your primary care doctor. Contact your primary care doctor to let them know you were here in the emergency room. There may be nonspecific findings which may not be related to your visit today here in the emergency room but may require further evaluation and chronic monitoring by your primary care doctor. If you had a laceration today the chance of foreign body always remains. You should follow-up with your primary care doctor for recheck in 3-5 days for a wound check. If you had an x-ray done there is a chance that a fracture could have been missed on initial read and you should follow-up with your primary care doctor for repeat x-rays if symptoms persist. If your blood pressure was elevated here in the emergency room please have rechecked by our primary care doctor within the next 48. If you were prescribed a narcotic here in the emergency room or any type of controlled substances you're not allowed to drive while taking this medication or operate any type of heavy machinery. Narcotics can make you feel lightheaded dizziness nausea and can cause constipation. You may need to pickle pumper a stool softener. Thank you for choosing [facility] emergency room. Please return to the emergency room immediately if you have any other concerns worsening of symptoms. Departure Forms: Customer Survey General Discharge Information Prescriptions: Current Visit Scripts Tramadol HCl 1-2 TAB PO Q6P PRN pain #15 TAB Dicyclomine HCl 1-2 CAP PO TID #30 CAP (Herrera Warren) PA/GOLF COACH Co-Sign Statement Statement: ED Attending supervision documentation- I saw and evaluated the patient. I have also reviewed all the pertinent lab results and diagnostic results. I agree with the findings and the plan of care as documented in the PA's/GOLF COACH's documentation. x I have reviewed the ED Record and agree with the PA's/GOLF COACH's documentation. [] Additions or exceptions (if any) to the PAs/GOLF COACH's note and plan are summarized below: [] (Miguelito BENJAMIN,Ap)
--- NOTE | 2018-05-26 10:03 | CT SCAN REPORT ---
EXAMINATION: CT ABDOMEN AND PELVIS WITH CONTRAST CLINICAL INFORMATION: Abdominal pain. Assess for small bowel obstruction or hernia. History of intussusception. COMPARISON: CT scan of the abdomen and pelvis 12/17/2017. Abdominal x-ray 12/18/2017. TECHNIQUE: Multidetector volumetric imaging was performed of the abdomen and pelvis following IV administration of 95 mL of Optiray 320 intravenous contrast. Sagittal and coronal reformatted images were obtained on the technologist's workstation. DLP: 354.51 mGy-cm FINDINGS: LUNG BASES: The visualized lung bases are unremarkable. LIVER, GALLBLADDER, AND BILIARY TREE: The liver is normal in size and shape. It has diffusely decreased attenuation consistent with hepatic steatosis. There are no focal abnormalities. The intrahepatic ducts are not dilated. The gallbladder is unremarkable with no evidence of radiopaque gallstones, gallbladder wall thickening, or obvious pericholecystic inflammatory changes. PANCREAS: Unremarkable. SPLEEN: Unremarkable. ADRENAL GLANDS: The adrenal glands are not enlarged. KIDNEYS AND URETERS: The kidneys are normal in size, shape, and attenuation. No hydronephrosis, hydroureter, or calculi seen. No perinephric stranding. BLADDER: The urinary bladder is partially distended. GASTROINTESTINAL TRACT: The stomach is unremarkable. As previously described, there are small bowel loops in the left abdomen which have a similar configuration compared to the prior study, although the loops are not as fluid-filled compared to the prior CT scan. More distally, the small bowel loops appear normal. The appendix is normal. There is moderate stool within the large bowel. ABDOMINAL WALL: There is a small fat-containing umbilical hernia, similar compared to the prior study. LYMPH NODES: There is no pelvic or abdominal lymphadenopathy. The retroperitoneum appears normal. VASCULAR: The vascular structures appear normal. No aneurysms are demonstrated. PELVIC VISCERA: The prostate gland is normal in size. There are no pelvic masses or free pelvic fluid. OSSEOUS STRUCTURES: There are no acute osseous findings. There are multilevel Schmorl's nodes. IMPRESSION: 1. The study redemonstrates loops of small bowel in the left upper abdomen, which have a similar configuration compared to the prior study. Less fluid is noted on the current exam. The remainder of the loops of small bowel are unremarkable. The appendix is normal. There is moderate stool within the large bowel. 2. No large hernias or abdominal masses are demonstrated. 3. Low-attenuation diffusely in the liver is consistent with hepatic steatosis.
[2018-05-26] MEDS ORDERED: TRAMADOL HCL50 M1 PO (11:02)
[2018-05-26] MEDS ORDERED: DICYCLOMINE HCL10 M1 PO (11:02)
[2018-05-26 11:33] VITALS: BP 113/73
== END 2018-05-26 11:39 ==
LOC: ERH 08:13
PROVIDERS: Physician Assistant Medical
DX: R10.11 Right upper quadrant pain (principal); F17.200 Nicotine dependence, unspecified, uncomplicated
CPT/HCPCS: 74177; 81003; 96374; 96375; J2405